=== PATIENT | female | born 1985 | race African-American/Black ===

== ENCOUNTER 2020-07-10 11:25 | Outpatient (CLI) | payer OTHER, MEDICAID ==
--- NOTE | 2020-07-10 16:44 | XRAY Report ---
PROCEDURE: Ankle 3 View LT INDICATIONS: L ANKLE PX TECHNIQUE: 3 views of the ankle were acquired. COMPARISON: None FINDINGS: Bones: No visualized fracture or dislocation. Ankle mortise is normally aligned. No suspicious bony lesions. Soft tissues: No tibiotalar joint effusion. Achilles tendon appears normal. IMPRESSION: No visualized acute fracture or dislocation. However, occult injury cannot be excluded. Recommend short interval imaging follow-up in 7-10 days as clinically indicated for additional evalua tion. Reviewed by: Natividad Frederick MD on 07/10/2020 4:43 PM PST Approved by: Natividad Frederick MD on 07/10/2020 4:43 PM PST Station ID: [id number]
== END 2020-07-10 23:59 | disposition home or self-care (01) ==
LOC: DI.N 11:25
PROVIDERS: ATTEND Physician Assistant Medical
DX: M25.572 Pain in left ankle and joints of left foot (principal)